=== PATIENT | female | born 1980 | race Caucasian/White ===

== ENCOUNTER 2017-04-22 10:29 | Emergency (ER) | payer OTHER ==
[~2017-04-22] VITALS: Ht 167.6 cm; Wt 74.0 kg
[~2017-04-22 10:29] MED LIST: ENDOCET 5-3251 EACH PO; MOTRIN800 MG PO; NATALCARE RX1 TABLE1 PO
[2017-04-22 11:12] LABS: ADD MIUA? YES; BILIRUBIN NEGATIVE; BLOOD NEGATIVE; COLOR AMBER ((YELLOW)); GLUCOSE (STRIP) NEGATIVE; KETONES NEGATIVE; LEUKOCYTES NEGATIVE; NITRITE NEGATIVE; PROTEIN (STRIP) NEGATIVE; SPECIFIC GRAVITY 1.027 (1.000-1.030); UROBILINOGEN 0.2 MG/DL (0.2-1.0)
[2017-04-22 11:25] LABS: BACTERIA NONE SEEN /HPF; CASTS NONE SEEN /LPF; CRYSTALS PRESENT; EPITHELIAL CELLS 2+ /HPF; MUCUS NONE SEEN /LPF; RED BLOOD CELLS NONE SEEN /HPF (0-5); UCUL ADDED? NO; WHITE BLOOD CELLS NONE SEEN /HPF (0-5)
[2017-04-22 11:26] LABS: AMORPHOUS URATES CRYSTALS 3+
[2017-04-22 11:29] LABS: HEMATOCRIT 39.3 % (36.0-46.0); MCH 27.4 PG (29.0-34.0); MCHC 32.6 G/DL (30.0-36.0); MEAN PLAT.VOLUME 10.3 uM^3 (9.5-12.4); PLATELET COUNT 265 K/uL (156-360); RBC DIS.WIDTH-CV 13.2 % (11.8-14.6); RBC DIS.WIDTH-SD 40.2 % (39-53); RED BLOOD COUNT 4.68 M/uL (3.80-5.20); WHITE BLOOD COUNT 14.3 K/uL (4.1-10.2)
[2017-04-22 11:37] LABS: CHLORIDE 109 mEq/L (99-109); POTASSIUM 4.1 mEq/L (3.7-5.4); SODIUM 139 mEq/L (136-147)
[2017-04-22 11:39] LABS: GLUCOSE 125 mg/dL (70-99)
[2017-04-22 11:40] LABS: ANION GAP 11 MEQ/L (2-14)
[2017-04-22 11:43] LABS: GFR ESTIMATE (CALCULATED) > 59 mL/min/
[2017-04-22 11:44] LABS: UREA NITROGEN (BUN) 16 mg/dL (9-23)
[2017-04-22 13:10] LABS: TOTAL BILIRUBIN 0.3 mg/dL (0.0-1.0)
[2017-04-22 13:11] LABS: ALKALINE PHOSPHATASE 56 IU/L (3-129)
[2017-04-22 13:13] LABS: DIRECT BILIRUBIN 0.1 mg/dL (0.0-0.3)
[2017-04-22 13:14] LABS: LIPASE 20 U/L (1.0-51.0)
[2017-04-22] MEDS ORDERED: MOTRIN600 MG PO (15:02)
[2017-04-22] MEDS ORDERED: ZOFRAN ODT4 MG PO (15:02)
[2017-04-22 15:22] VITALS: BP 112/61
== END 2017-04-22 15:23 | disposition home or self-care (01) ==
LOC: EME 10:29
DX: N20.1 Calculus of ureter (principal)
CPT/HCPCS: 74176; 80048; 80076; 81003; 83690; 85027; 99281; 99283